=== PATIENT | female | born 1995 | race Caucasian/White ===

== ENCOUNTER → 2016-11-16 | Outpatient (CLI) | payer MEDICAID ==
--- NOTE | 2016-11-18 14:19 | US ---
EXAM DATE: 11/16/16 PATIENT'S AGE: 21 Patient: MONA MCMAHON Facility: [facility], [place], [place] : 1995 Study: US OB Pelvis [id number]/8/2017 2:14:51 PM Ordering Physician: Leona Aguilar Final Report: HISTORY: anatomy. Findings: Multiple grayscale static images from an OB ultrasound were evaluated. There is a single viable intrauterine fetus in cephalic presentation. The placenta is posterior without previa. The placenta has a small hypoechoic focus which may represent a small venous resendiz or fibrin deposition. The amniotic fluid is subjectively normal with an GEORGE of 16.6 cm. biometry demonstrates a BPD of 4.6 cm, 19 weeks 5 days. Head circumference 17.9 cm, 20 weeks 2 days. Abdominal circumference is 15.2 cm, 20 weeks 3 days. Femur length is 3.4 cm, 20 weeks 5 days. The estimated gestational age by ultrasound is 20 weeks 2 days with estimated delivery 03 April 2017. This correlates with the LMP. survey demonstrates a four-chamber heart. Right and left outflow tracts are seen. The cardiac rate 151 beats per minute. The kidneys, stomach and bladder normal. Three-vessel cord is present. The umbilical insertion site is normal. The kidneys, stomach and bladder are normal. Intracranial contents are normal. The upper lip is intact. The nasal bone is not well seen on the profile image. Impression: 1. Single viable intrauterine fetus in cephalic presentation with estimated gestational age of 20 weeks 2 days. This correlates with the LMP. 2. The nasal bone is not well seen on the frontal image. The remainder of the survey is normal. 3. Small hyperechoic focus in the posterior placenta most likely a small venous Resendiz or fibrin deposition. Dictated by Miracle Piedra MD @ Nov 17 2016 11:18PM (Electronic Signature) Report Signed by Proxy and Original Signed Document filed in the Medical Record. [facility] CENTERDonavan
== END ==
LOC: MW.US 13:10
PROVIDERS: ATTEND Advanced Practice Midwife
DX: Z34.92 Encounter for supervision of normal pregnancy, unspecified, second trimester (principal); Z3A.19 19 weeks gestation of pregnancy
CPT/HCPCS: 76805; 76805-26

== ENCOUNTER 2017-04-07 00:48 | Inpatient (IN) | payer MEDICAID ==
[2017-04-07] MEDS ORDERED: Carboprost Tromethamine 250 MCG/1 ML Amp IM PRN (01:41)
[2017-04-07] MEDS ORDERED: Misoprostol 200 MCG Tab PO PRN (01:41)
[2017-04-07] MEDS ORDERED: Terbutaline 1 MG/ML SDV SUBCUT PRN (01:41)
[2017-04-07] MEDS ORDERED: Lidocaine 1% 50 ML MDV INJECT PRN (01:41)
[2017-04-07] MEDS ORDERED: Water For Irrigation,Sterile 1,000 ML Container IRR PRN (01:41)
[2017-04-07] MEDS ORDERED: Sodium Chloride 0.9% 2.5 ML Syringe FLUSH PRN (01:41)
[2017-04-07] MEDS ORDERED: Butorphanol 1 MG/ML SDV IVPUSH PRN (01:41)
[2017-04-07] MEDS ORDERED: Sodium Chloride 0.9% 10 ML Syringe FLUSH PRN (01:41)
[2017-04-07] MEDS ORDERED: Nalbuphine 10 MG/1 ML Vial IVPUSH PRN (01:41)
[2017-04-07] MEDS ORDERED: Methylergonovine 0.2 MG/1 ML Amp IM PRN (01:41)
[2017-04-07] MEDS ORDERED: Misoprostol 25 MCG (1/4 of 100 MCG) Tab PO SCH (01:45)
[2017-04-07] MEDS ORDERED: Misoprostol 25 MCG (1/4 of 100 MCG) Tab VAG SCH (01:45)
[2017-04-07] MEDS ORDERED: Oxytocin/Lactated Ringers 30 UNIT/500 ML BAG IV SCH ×2 (01:45→06:00)
[2017-04-07] MEDS ORDERED: Misoprostol 25 MCG (1/4 of 100 MCG) Tab PO PRN (06:00)
[2017-04-07] MEDS ORDERED: Misoprostol 25 MCG (1/4 of 100 MCG) Tab VAG PRN (06:00)
[2017-04-07] MEDS: Lactated Ringers 1,000 ML IV SCH ×3 (08:43→13:27)
--- NOTE | 2017-04-07 10:00 | PCM.LDHP ---
L&D History of Present Illness - General Date of Service: 04/07/17 Admit Problem/Dx: Patient Status Order with Admit Dx/Problem 04/07/17 01:43 Patient Status [ADT] Routine Admission Diagnosis/Problem Admission Diagnosis/Problem 04/07/17 09:57 21 yo EDC 03/29/2017 41 2/7wk O+, RI, GBS neg, IOL for post dates. Source of Information: Patient History Limitations: Reports: No Limitations - History of Present Illness Improves with: Reports: None Worsens with: Reports: None Associated Symptoms: Reports: N - Related Data Allergies/Adverse Reactions: Allergies Allergy/AdvReac Type Severity Reaction Status Date / Time No Known Allergies Allergy Verified 03/30/16 08:59 Home Medications: Home Meds . 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 Musculoskeletal History: Reports: None Neurological History: Reports: None Psychiatric History: Reports: None Endocrine/Metabolic History: Reports: None Hematologic History: Reports: None Dermatologic History: Reports: None - Past Surgical History HEENT Surgical History: Reports: None Cardiovascular Surgical History: Reports: None Respiratory Surgical History: Reports: None GI Surgical History: Reports: Cholecystectomy, Hernia, Abdominal Endocrine Surgical History: Reports: None Neurological Surgical History: Reports: None Musculoskeletal Surgical History: Reports: None Dermatological Surgical History: Reports: None Social & Family History - Family History Family Medical History: Unobtainable - Tobacco Use Smoking Status *Q: Never Smoker Second Hand Smoke Exposure: No - Caffeine Use Caffeine Use: Reports: None - Recreational Drug Use Recreational Drug Use: No Drug Use in Last 12 Months: No H&P Review of Systems - Review of Systems: Review Of Systems: See Below General: Reports: No Symptoms HEENT: Reports: No Symptoms Pulmonary: Reports: No Symptoms Cardiovascular: Reports: No Symptoms Gastrointestinal: Reports: No Symptoms Genitourinary: Reports: No Symptoms Musculoskeletal: Reports: No Symptoms Skin: Reports: No Symptoms Psychiatric: Reports: No Symptoms Neurological: Reports: No Symptoms Hematologic/Lymphatic: Reports: No Symptoms Immunologic: Reports: No Symptoms L&D Exam - Exam Exam: See Below - Vital Signs Weight: 73.028 kg - Bhakta Score Bhakta Score Cervix Position: Midposition Bhakta Score Consistency: Soft Bhakta Score Effacement: >80% Bhakta Score Dilation: 3-4 cm Bhakta Score Infant's Station: -2 Bhakta Score Total: 9 - Exam General: Alert, Oriented, Cooperative HEENT: Hearing Intact Lungs: Normal Respiratory Effort GI/Abdominal Exam: Soft, Non-Tender (gravid) Rectal Exam: Deferred Genitourinary: Normal external exam, Normal bimanual exam, Cervical dilitation Back Exam: Full Range of Motion Extremities: Normal Range of Motion, Non-Tender, No Pedal Edema Skin: Warm, Dry, Intact Neurological: Cranial Nerves Intact Psychiatric: Alert, Normal Affect, Normal Mood - Patient Data Lab Results Last 24 hrs: Laboratory Results - last 24 hr 04/07/17 04/07/17 Range/Units 02:00 02:00 WBC 11.15 H (4.0-11.0) K/uL RBC 3.94 L (4.30-5.90) M/uL Hgb 12.1 (12.0-16.0) g/dL Hct 36.4 (36.0-46.0) % MCV 92.4 (80.0-98.0) fL MCH 30.7 (27.0-32.0) pg MCHC 33.2 (31.0-37.0) g/dL RDW Std Deviation 48.2 (28.0-62.0) fl RDW Coeff of Khoi 14 (11.0-15.0) % Plt Count 244 (150-400) K/uL MPV 10.30 (7.40-12.00) fL Nucleated RBC % 0.0 /100WBC Nucleated RBCs # 0 K/uL Blood Type O POSITIVE Antibody Screen NEGATIVE Result Diagrams: 04/07/17 02:00 - Problem List (1) Supervision of normal IUP (intrauterine ) in multigravida SNOMED Code(s): 192956478, 531777707, 182436652 ICD Code: Z34.80 - ENCOUNTER FOR SUPRVSN OF NORMAL , UNSP TRIMESTER Status: Acute Priority: High Current Visit: Yes Qualifiers: Trimester: third trimester Qualified Code(s): Z34.83 - Encounter for supervision of other normal , third trimester (2) Post-dates SNOMED Code(s): 63055750 ICD Code: O48.0 - POST-TERM Status: Acute Priority: High Current Visit: Yes Qualifiers: Post-term type: 40-42 weeks gestation Qualified Code(s): O48.0 - Post-term Problem List Initiated/Reviewed/Updated: Yes Orders Last 24hrs: Active Orders 24 hr Category Date Time Status Patient Status [ADT] Routine ADT 04/07/17 01:43 Active Bedrest Bathroom Privileges [RC] ASDIRECTED Care 04/07/17 01:43 Active Communication Order [RC] ASDIRECTED Care 04/07/17 01:43 Active Communication Order [RC] ASDIRECTED Care 04/07/17 01:43 Active Communication Order [RC] ASDIRECTED Care 04/07/17 01:43 Active Heart Tones [RC] CONTINUOUS Care 04/07/17 01:43 Active Non Stress Test [RC] PER UNIT ROUTINE Care 04/07/17 01:43 Active May Shower [RC] ASDIRECTED Care 04/07/17 01:43 Active Notify Provider [RC] PRN Care 04/07/17 01:43 Active Notify Provider [RC] PRN Care 04/07/17 01:43 Active Notify Provider [RC] PRN Care 04/07/17 01:43 Active Notify Provider [RC] STAT Care 04/07/17 01:43 Active Oxygen Therapy [RC] ASDIRECTED Care 04/07/17 01:43 Active Peripheral IV Care [RC] . DIRECTED Care 04/07/17 01:41 Active Up ad Betzy [RC] ASDIRECTED Care 04/07/17 01:43 Active Vaginal Exam [RC] PRN Care 04/07/17 01:43 Active Vital Signs [RC] PER UNIT ROUTINE Care 04/07/17 01:43 Active Regular Diet [DIET] Diet 04/07/17 Breakfast Active Butorphanol [Stadol] Med 04/07/17 01:41 Active 1 mg IVPUSH Q1H PRN Carboprost Tromethamine [Hemabate DS] Med 04/07/17 01:41 Active 250 mcg IM ASDIRECTED PRN Lactated Ringers [Ringers, Lactated] 1,000 ml Med 04/07/17 01:45 Active IV ASDIRECTED Lidocaine 1% [Xylocaine 1%] Med 04/07/17 01:41 Active 50 ml INJECT .ONCE PRN Methylergonovine [Methergine] Med 04/07/17 01:41 Active 0.2 mg IM ASDIRECTED PRN Misoprostol [Cytotec] Med 04/07/17 01:41 Active 200 mcg PO .ONCE PRN Misoprostol [Cytotec] Med 04/07/17 01:45 Active 25 mcg PO .ONCE Misoprostol [Cytotec] Med 04/07/17 06:00 Active 25 mcg PO Q4H PRN Misoprostol [Cytotec] Med 04/07/17 01:45 Active 25 mcg VAG .ONCE Misoprostol [Cytotec] Med 04/07/17 06:00 Active 25 mcg VAG Q4H PRN Oxytocin/Lactated Ringers [Pitocin in LR 30 Units/500 Med 04/07/17 06:00 Active ML] 30 unit in 500 ml IV TITRATE Sodium Chloride 0.9% [Saline Flush] Med 04/07/17 01:41 Active 10 ml FLUSH ASDIRECTED PRN Sodium Chloride 0.9% [Saline Flush] Med 04/07/17 01:41 Active 2.5 ml FLUSH ASDIRECTED PRN Terbutaline [Brethine] Med 04/07/17 01:41 Active 0.25 mg SUBCUT ASDIRECTED PRN Water For Irrigation,Sterile [Sterile Water for Med 04/07/17 01:41 Active Irrigation] 1,000 ml IRR ASDIRECTED PRN Scalp Electrode [WOMSER] Per Unit Routine Ot 04/07/17 01:43 Ordered Medication Administration Instruction [OM.PC] Q3H Oth 04/07/17 01:45 Ordered Peripheral IV Insertion Adult [OM.PC] Routine Oth 04/07/17 01:43 Ordered Resuscitation Status Routine Resus Stat 04/07/17 01:41 Ordered Medication Orders Butorphanol Tartrate (Stadol) 1 mg IVPUSH Q1H PRN PRN Reason: Pain Carboprost Tromethamine (Hemabate Ds) 250 mcg IM ASDIRECTED PRN PRN Reason: Post Hemorrhage Lactated Ringer's (Ringers, Lactated) 1,000 mls @ 150 mls/hr IV ASDIRECTED HORACE Last Admin: 04/07/17 08:43 Dose: 150 mls/hr Oxytocin/Lactated Ringer's (Pitocin In Lr 30 Units/500 Ml) 30 unit in 500 mls @ 2 mls/hr IV TITRATE HORACE; 2 MUNITS/MIN PRN Reason: Protocol Last Titration: 04/07/17 09:52 Dose: 4 munits/min, 4 mls/hr Admin: 04/07/17 08:53 Dose: 2 munits/min, 2 mls/hr Lidocaine HCl (Xylocaine 1%) 50 ml INJECT .ONCE PRN PRN Reason: Laceration repair Methylergonovine Maleate (Methergine) 0.2 mg IM ASDIRECTED PRN PRN Reason: Post Hemorrhage Misoprostol (Cytotec) 25 mcg VAG .ONCE HORACE Misoprostol (Cytotec) 25 mcg VAG Q4H PRN PRN Reason: Cervical Ripening Stop: 04/08/17 10:01 Misoprostol (Cytotec) 200 mcg PO .ONCE PRN PRN Reason: Post Hemorrhage Misoprostol (Cytotec) 25 mcg PO .ONCE HORACE Misoprostol (Cytotec) 25 mcg PO Q4H PRN PRN Reason: Cervical Ripening Stop: 04/08/17 10:01 Sodium Chloride (Saline Flush) 10 ml FLUSH ASDIRECTED PRN PRN Reason: Keep Vein Open Sodium Chloride (Saline Flush) 2.5 ml FLUSH ASDIRECTED PRN PRN Reason: Keep Vein Open Sterile Water (Sterile Water For Irrigation) 1,000 ml IRR ASDIRECTED PRN PRN Reason: delivery Terbutaline Sulfate (Brethine) 0.25 mg SUBCUT ASDIRECTED PRN PRN Reason: Tacysystole Assessment/Plan Comment:: IOL A: 21 yo EDC 03/29/2017 41 2/7wk O+, RI, GBS neg, IOL for post dates. P: AROM, Pitocin per protocol, IV pain meds prn, anticipate
--- NOTE | 2017-04-07 12:55 | PCM.PREANE ---
Preanesthetic Assessment - Anesthesia/Transfusion/Family Hx Anesthesia History: Prior Anesthesia Without Reaction Family History of Anesthesia Reaction: No Transfusion History: No Prior Transfusion(s) - Review of Systems General: No Symptoms Pulmonary: No Symptoms Cardiovascular: No Symptoms Gastrointestinal: No Symptoms Neurological: No Symptoms Other: Reports: None - Physical Assessment Height: 1.65 m Weight: 73.028 kg Mental Status: Alert & Oriented x3 Dentition: Reports: Normal Dentition ROM/Head Extension: Full Lungs: Clear to Auscultation, Normal Respiratory Effort Cardiovascular: Regular Rate, Regular Rhythm - Lab Values: Laboratory Last Values WBC 11.15 K/uL (4.0-11.0) H 04/07/17 02:00 RBC 3.94 M/uL (4.30-5.90) L 04/07/17 02:00 Hgb 12.1 g/dL (12.0-16.0) 04/07/17 02:00 Hct 36.4 % (36.0-46.0) 04/07/17 02:00 MCV 92.4 fL (80.0-98.0) 04/07/17 02:00 MCH 30.7 pg (27.0-32.0) 04/07/17 02:00 MCHC 33.2 g/dL (31.0-37.0) 04/07/17 02:00 RDW Std Deviation 48.2 fl (28.0-62.0) 04/07/17 02:00 RDW Coeff of Khoi 14 % (11.0-15.0) 04/07/17 02:00 Plt Count 244 K/uL (150-400) 04/07/17 02:00 MPV 10.30 fL (7.40-12.00) 04/07/17 02:00 Nucleated RBC % 0.0 /100WBC 04/07/17 02:00 Nucleated RBCs # 0 K/uL 04/07/17 02:00 Blood Type O POSITIVE 04/07/17 02:00 Antibody Screen NEGATIVE 04/07/17 02:00 - Allergies Allergies/Adverse Reactions: Allergies Allergy/AdvReac Type Severity Reaction Status Date / Time No Known Allergies Allergy Verified 03/30/16 08:59 - Blood Blood Available: Yes Product(s) Available: PRBC - Anesthesia Plan Pre-Op Medication Ordered: None - Acknowledgements Anesthesia Type Planned: Epidural Pt an Appropriate Candidate for the Planned Anesthesia: Yes Alternatives and Risks of Anesthesia Discussed w Pt/Guardian: Yes Pt/Guardian Understands and Agrees with Anesthesia Plan: Yes PreAnesthesia Questionnaire HEENT History: Reports: None Cardiovascular History: Reports: None Respiratory History: Reports: None Gastrointestinal History: Reports: None Genitourinary History: Reports: Renal Calculus 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 Musculoskeletal History: Reports: None Neurological History: Reports: None Psychiatric History: Reports: None Endocrine/Metabolic History: Reports: None Hematologic History: Reports: None Dermatologic History: Reports: None - Past Surgical History HEENT Surgical History: Reports: None Cardiovascular Surgical History: Reports: None Respiratory Surgical History: Reports: None GI Surgical History: Reports: Cholecystectomy, Hernia, Abdominal Endocrine Surgical History: Reports: None Neurological Surgical History: Reports: None Musculoskeletal Surgical History: Reports: None Dermatological Surgical History: Reports: None - SUBSTANCE USE Smoking Status *Q: Never Smoker Second Hand Smoke Exposure: No Recreational Drug Use History: No - HOME MEDS Home Medications: Home Meds . [No Known Home Meds] 03/30/16 [History] - CURRENT (IN HOUSE) MEDS Current Meds: Current Medications Butorphanol Tartrate (Stadol) 1 mg IVPUSH Q1H PRN PRN Reason: Pain Last Admin: 04/07/17 10:15 Dose: 1 mg Carboprost Tromethamine (Hemabate Ds) 250 mcg IM ASDIRECTED PRN PRN Reason: Post Hemorrhage Lactated Ringer's (Ringers, Lactated) 1,000 mls @ 150 mls/hr IV ASDIRECTED HORACE Last Admin: 04/07/17 08:43 Dose: 150 mls/hr Oxytocin/Lactated Ringer's (Pitocin In Lr 30 Units/500 Ml) 30 unit in 500 mls @ 2 mls/hr IV TITRATE HORACE; 2 MUNITS/MIN PRN Reason: Protocol Last Titration: 04/07/17 11:30 Dose: 8 munits/min, 8 mls/hr Lidocaine HCl (Xylocaine 1%) 50 ml INJECT .ONCE PRN PRN Reason: Laceration repair Methylergonovine Maleate (Methergine) 0.2 mg IM ASDIRECTED PRN PRN Reason: Post Hemorrhage Misoprostol (Cytotec) 25 mcg VAG .ONCE HORACE Misoprostol (Cytotec) 25 mcg VAG Q4H PRN PRN Reason: Cervical Ripening Stop: 04/08/17 10:01 Misoprostol (Cytotec) 200 mcg PO .ONCE PRN PRN Reason: Post Hemorrhage Misoprostol (Cytotec) 25 mcg PO .ONCE HORACE Misoprostol (Cytotec) 25 mcg PO Q4H PRN PRN Reason: Cervical Ripening Stop: 04/08/17 10:01 Sodium Chloride (Saline Flush) 10 ml FLUSH ASDIRECTED PRN PRN Reason: Keep Vein Open Sodium Chloride (Saline Flush) 2.5 ml FLUSH ASDIRECTED PRN PRN Reason: Keep Vein Open Sterile Water (Sterile Water For Irrigation) 1,000 ml IRR ASDIRECTED PRN PRN Reason: delivery Terbutaline Sulfate (Brethine) 0.25 mg SUBCUT ASDIRECTED PRN PRN Reason: Tacysystole Discontinued Medications Oxytocin/Lactated Ringer's (Pitocin In Lr 30 Units/500 Ml) 30 unit in 500 mls @ 250 mls/hr IV TITRATE HORACE PRN Reason: 250 MUNITS/MIN Stop: 04/07/17 03:44 Nalbuphine HCl (Nubain) 10 mg IVPUSH Q1H PRN PRN Reason: Pain (severe 7-10) Stop: 04/07/17 03:42
[2017-04-07] MEDS ORDERED: fentaNYL 100 MCG/2 ML SDV ONE (12:56)
[2017-04-07] MEDS ORDERED: Ropivacaine HCl/PF 100 ML ONE (12:57)
[2017-04-07] MEDS ORDERED: Docusate Sodium 100 MG Cap PO PRN (14:20)
[2017-04-07] MEDS ORDERED: Acetaminophen 500 MG Tab PO PRN (14:20)
[2017-04-07] MEDS ORDERED: Lanolin 100% Cream 7 GM Tube TOP PRN (14:20)
[2017-04-07] MEDS ORDERED: Bisacodyl 10 MG Supp RECTAL PRN (14:20)
[2017-04-07] MEDS ORDERED: Ibuprofen 400 MG Tab PO PRN (14:20)
[2017-04-07] MEDS ORDERED: Witch Hazel Medicated Pads 40/Jar TOP PRN (14:20)
[2017-04-07] MEDS ORDERED: Benzocaine/Menthol 20%-0.5% Spray 78 GM Cannister TOP PRN (14:20)
[2017-04-07] MEDS ORDERED: Ibuprofen 800 MG Tab PO PRN (14:20)
--- NOTE | 2017-04-07 14:30 | PCM.DEL ---
L & D Note - General Info Date of Service: 04/07/17 Mother's Due Date: 03/29/17 - Delivery Note Labor: Augmented by Oxytocin, Induced by ARM Delivery Outcome: Livebirth Delivery Method: Spontaneous Vaginal Delivery Delivery Mode: Spontaneous Presentation: Vertex Nuchal Cord: None Anesthesia Type: Epidural Amniotic Fluid Description: Clear Episiotomy Type: None Laceration: None Placenta: Intact, Spontaneous Cord: 3 Vessels Estimated Blood Loss: 300 Resuscitation Needed: Yes Standish: Suctioned, Stimulated, Warmed (PPV and blow by O2) Second Stage Interventions: Reports: Pushing Effectively Delivery Comments (Free Text/Narrative):: of viable girl over intact perineum. Head delivered with good pushing, bundle of umbilical cord noted at neck but not a nuchle, Shoulders and body followed easily. Infant to mothers abd with RN at . Poor cry and color, cord clamped and cut. Infant to warmer for evaluation. Placenta delivered grossly intact. Pitocin to IVF. Inspection noted intact perineum. EBL 300, APGARS 7/8. Wt pending bonding. Bonding well. Induction Criteria - Bhakta Score Bhakta Score Dilation: 3-4 cm Bhakta Score Effacement: 60-70% Bhakta Score Infant's Station: -2 Bhakta Score Consistency: Soft Bhakta Score Cervix Position: Midposition Bhakta Score Total: 8 Bhakta Score Presenting Part: Reports: Cephalic - Induction Gestational Age >/= 39 wks: Yes Medical Indication: post dates 41 2/7wks Estimated Pelvis: Reports: Adequate Reassuring Monitoring Strip: Yes Absence of Tachy Systole: Yes - General Info Date of Service: 04/07/17 Functional Status: Reports: Pain Controlled - Review of Systems General: Reports: No Symptoms HEENT: Reports: No Symptoms Pulmonary: Reports: No Symptoms Cardiovascular: Reports: No Symptoms Gastrointestinal: Reports: No Symptoms Genitourinary: Reports: No Symptoms Musculoskeletal: Reports: No Symptoms Skin: Reports: No Symptoms Neurological: Reports: No Symptoms Psychiatric: Reports: No Symptoms - Patient Data Weight - Most Recent: 73.028 kg Lab Results Last 24 Hours: Laboratory Results - last 24 hr 04/07/17 04/07/17 Range/Units 02:00 02:00 WBC 11.15 H (4.0-11.0) K/uL RBC 3.94 L (4.30-5.90) M/uL Hgb 12.1 (12.0-16.0) g/dL Hct 36.4 (36.0-46.0) % MCV 92.4 (80.0-98.0) fL MCH 30.7 (27.0-32.0) pg MCHC 33.2 (31.0-37.0) g/dL RDW Std Deviation 48.2 (28.0-62.0) fl RDW Coeff of Khoi 14 (11.0-15.0) % Plt Count 244 (150-400) K/uL MPV 10.30 (7.40-12.00) fL Nucleated RBC % 0.0 /100WBC Nucleated RBCs # 0 K/uL Blood Type O POSITIVE Antibody Screen NEGATIVE Med Orders - Current: Current Medications Discontinued Medications Butorphanol Tartrate (Stadol) 1 mg IVPUSH Q1H PRN PRN Reason: Pain Last Admin: 04/07/17 10:15 Dose: 1 mg Carboprost Tromethamine (Hemabate Ds) 250 mcg IM ASDIRECTED PRN PRN Reason: Post Hemorrhage Fentanyl (Sublimaze) Confirm Administered Dose 100 mcg .ROUTE .STK-MED ONE Stop: 04/07/17 12:57 Lactated Ringer's (Ringers, Lactated) 1,000 mls @ 150 mls/hr IV ASDIRECTED HORACE Last Admin: 04/07/17 13:27 Dose: 150 mls/hr Oxytocin/Lactated Ringer's (Pitocin In Lr 30 Units/500 Ml) 30 unit in 500 mls @ 2 mls/hr IV TITRATE HORACE; 2 MUNITS/MIN PRN Reason: Protocol Last Titration: 04/07/17 11:30 Dose: 8 munits/min, 8 mls/hr Oxytocin/Lactated Ringer's (Pitocin In Lr 30 Units/500 Ml) 30 unit in 500 mls @ 250 mls/hr IV TITRATE HORACE PRN Reason: 250 MUNITS/MIN Stop: 04/07/17 03:44 Ropivacaine (Naropin 0.2%) Confirm Administered Dose 100 mls @ as directed .ROUTE .STK-MED ONE Stop: 04/07/17 12:58 Lidocaine HCl (Xylocaine 1%) 50 ml INJECT .ONCE PRN PRN Reason: Laceration repair Methylergonovine Maleate (Methergine) 0.2 mg IM ASDIRECTED PRN PRN Reason: Post Hemorrhage Misoprostol (Cytotec) 25 mcg VAG .ONCE HORACE Misoprostol (Cytotec) 25 mcg VAG Q4H PRN PRN Reason: Cervical Ripening Stop: 04/08/17 10:01 Misoprostol (Cytotec) 200 mcg PO .ONCE PRN PRN Reason: Post Hemorrhage Misoprostol (Cytotec) 25 mcg PO .ONCE HORACE Misoprostol (Cytotec) 25 mcg PO Q4H PRN PRN Reason: Cervical Ripening Stop: 04/08/17 10:01 Nalbuphine HCl (Nubain) 10 mg IVPUSH Q1H PRN PRN Reason: Pain (severe 7-10) Stop: 04/07/17 03:42 Sodium Chloride (Saline Flush) 10 ml FLUSH ASDIRECTED PRN PRN Reason: Keep Vein Open Sodium Chloride (Saline Flush) 2.5 ml FLUSH ASDIRECTED PRN PRN Reason: Keep Vein Open Sterile Water (Sterile Water For Irrigation) 1,000 ml IRR ASDIRECTED PRN PRN Reason: delivery Terbutaline Sulfate (Brethine) 0.25 mg SUBCUT ASDIRECTED PRN PRN Reason: Tacysystole - Exam General: Alert, Oriented, Cooperative, No Acute Distress Lungs: Normal Respiratory Effort GI/Abdominal Exam: Soft, Non-Tender, No Organomegaly (Female) Exam: Vaginal Bleeding Back Exam: Full Range of Motion Extremities: Normal Range of Motion, No Pedal Edema Skin: Warm, Dry, Intact Wound/Incisions: Healing Well Neurological: No New Focal Deficit, Normal Speech, Normal Tone Psy/Mental Status: Alert, Normal Affect, Normal Mood - Problem List & Annotations (1) Supervision of normal IUP (intrauterine ) in multigravida SNOMED Code(s): 636073015, 348286952, 377122068 Code(s): Z34.80 - ENCOUNTER FOR SUPRVSN OF NORMAL , UNSP TRIMESTER Status: Acute Priority: High Current Visit: Yes Qualifiers: Trimester: third trimester Qualified Code(s): Z34.83 - Encounter for supervision of other normal , third trimester (2) Post-dates SNOMED Code(s): 13477395 Code(s): O48.0 - POST-TERM Status: Acute Priority: High Current Visit: Yes Qualifiers: Post-term type: 40-42 weeks gestation Qualified Code(s): O48.0 - Post-term (3) (normal spontaneous vaginal delivery) SNOMED Code(s): 58194989 Code(s): O80 - ENCOUNTER FOR FULL-TERM UNCOMPLICATED DELIVERY Status: Acute Priority: Medium Current Visit: Yes - Problem List Review Problem List Initiated/Reviewed/Updated: Yes - My Orders Last 24 Hours: My Active Orders 04/07/17 01:43 Bedrest Bathroom Privileges [RC] ASDIRECTED Communication Order [RC] ASDIRECTED Communication Order [RC] ASDIRECTED Communication Order [RC] ASDIRECTED Heart Tones [RC] CONTINUOUS Non Stress Test [RC] PER UNIT ROUTINE May Shower [RC] ASDIRECTED Notify Provider [RC] PRN Notify Provider [RC] PRN Notify Provider [RC] PRN Notify Provider [RC] STAT Oxygen Therapy [RC] ASDIRECTED Up ad Betzy [RC] ASDIRECTED Vaginal Exam [RC] PRN Vital Signs [RC] PER UNIT ROUTINE 04/07/17 14:20 May Shower [RC] ASDIRECTED Up ad Betzy [RC] ASDIRECTED Vital Signs [RC] PER UNIT ROUTINE Acetaminophen [Tylenol Extra Strength] 1,000 mg PO Q4H PRN Acetaminophen [Tylenol Extra Strength] 500 mg PO Q4H PRN Benzocaine/Menthol [Dermoplast Pain Relief 20%-0.5% [place]] 78 gm TOP ASDIRECTED PRN Bisacodyl [Dulcolax] 10 mg RECTAL .ONCE PRN Docusate Sodium [Colace] 100 mg PO BID PRN Ibuprofen [Motrin] 400 mg PO Q4H PRN Ibuprofen [Motrin] 800 mg PO Q6H PRN Lanolin [Lansinoh HPA] See Dose Instructions TOP ASDIRECTED PRN Witch Nathalia [Tucks] 1 pad TOP ASDIRECTED PRN oxyCODONE 5 mg PO Q2H PRN Assess Lochia [WOMSER] Per Unit Routine Assess Uterine Involution [WOMSER] Per Unit Routine Peripheral IV Discontinue [OM.PC] Routine Resuscitation Status Routine 04/07/17 14:21 Patient Status [ADT] Routine 04/07/17 Dinner Regular Diet [DIET] - Assessment Assessment:: of viable female, APGARS 7/8, Wt: pending. Intact perineum, EBL 300cc, Stable. Breast and bottle - Plan Plan:: IOL A: 21 yo EDC 03/29/2017 41 2/7wk O+, RI, GBS neg, IOL for post dates. P: AROM, Pitocin per protocol, IV pain meds prn, anticipate Delivery Routine pp plan of care.
[2017-04-07] MEDS ORDERED: Oxytocin/Lactated Ringers 30 UNIT/500 ML BAG ONE (16:47)
[2017-04-08] MEDS: Acetaminophen 500 MG Tab PO PRN ×2 (02:24→07:47)
[2017-04-08] MEDS: oxyCODONE 5 MG Tab PO PRN ×2 (02:24→07:48)
[2017-04-08 08:18] VITALS: BP 118/71
--- NOTE | 2017-04-08 09:52 | PCM48HPAN ---
Post Anesthesia Note - EVALUATION WITHIN 48HRS OF ANESTHETIC Vital Signs in Normal Range: Yes Patient Participated in Evaluation: Yes Respiratory Function Stable: Yes Airway Patent: Yes Cardiovascular Function Stable: Yes Hydration Status Stable: Yes Pain Control Satisfactory: Yes Nausea and Vomiting Control Satisfactory: Yes Mental Status Recovered: Yes
--- NOTE | 2017-04-08 17:57 | PCM.PNPP ---
- General Info Date of Service: 04/08/17 Functional Status: Reports: Pain Controlled - Review of Systems General: Reports: No Symptoms HEENT: Reports: No Symptoms Pulmonary: Reports: No Symptoms Cardiovascular: Reports: No Symptoms Gastrointestinal: Reports: No Symptoms Genitourinary: Reports: No Symptoms Musculoskeletal: Reports: No Symptoms Skin: Reports: No Symptoms Neurological: Reports: No Symptoms Psychiatric: Reports: No Symptoms - General Info Date of Service: 04/08/17 - Patient Data Vital Signs - Most Recent: Last Vital Signs Temp 36.6 C 04/08/17 08:00 Pulse 60 04/08/17 08:00 Resp 16 04/08/17 08:00 BP 118/71 04/08/17 08:00 Pulse Ox 100 04/08/17 08:00 Weight - Most Recent: 73.028 kg Lab Results - Last 24 Hours: Laboratory Results - last 24 hr 04/08/17 Range/Units 04:54 Hgb 9.3 L (12.0-16.0) g/dL Hct 28.3 L (36.0-46.0) % Med Orders - Current: Current Medications Acetaminophen (Tylenol Extra Strength) 500 mg PO Q4H PRN PRN Reason: Pain Last Admin: 04/08/17 07:47 Dose: 500 mg Acetaminophen (Tylenol Extra Strength) 1,000 mg PO Q4H PRN PRN Reason: Pain Last Admin: 04/08/17 16:44 Dose: 1,000 mg Benzocaine/Menthol (Dermoplast Pain Relief 20%-0.5% [place]) 78 gm TOP ASDIRECTED PRN PRN Reason: Perineal Comfort Measure Bisacodyl (Dulcolax) 10 mg RECTAL .ONCE PRN PRN Reason: Constipation Docusate Sodium (Colace) 100 mg PO BID PRN PRN Reason: Constipation Last Admin: 04/08/17 08:00 Dose: 100 mg Emollient Ointment (Lansinoh Hpa) 0 gm TOP ASDIRECTED PRN PRN Reason: Sore Nipples Ibuprofen (Motrin) 400 mg PO Q4H PRN PRN Reason: Pain Ibuprofen (Motrin) 800 mg PO Q6H PRN PRN Reason: Pain Last Admin: 04/07/17 20:57 Dose: 800 mg Oxycodone HCl (Oxycodone) 5 mg PO Q2H PRN PRN Reason: Pain Last Admin: 04/08/17 07:48 Dose: 5 mg Witch Nathalia (Tucks) 1 pad TOP ASDIRECTED PRN PRN Reason: comfort care Discontinued Medications Butorphanol Tartrate (Stadol) 1 mg IVPUSH Q1H PRN PRN Reason: Pain Last Admin: 04/07/17 10:15 Dose: 1 mg Carboprost Tromethamine (Hemabate Ds) 250 mcg IM ASDIRECTED PRN PRN Reason: Post Hemorrhage Fentanyl (Sublimaze) Confirm Administered Dose 100 mcg .ROUTE .STK-MED ONE Stop: 04/07/17 12:57 Last Admin: 04/07/17 20:04 Dose: Not Given Lactated Ringer's (Ringers, Lactated) 1,000 mls @ 150 mls/hr IV ASDIRECTED HORACE Last Admin: 04/07/17 13:27 Dose: 150 mls/hr Oxytocin/Lactated Ringer's (Pitocin In Lr 30 Units/500 Ml) 30 unit in 500 mls @ 2 mls/hr IV TITRATE HORACE; 2 MUNITS/MIN PRN Reason: Protocol Last Titration: 04/07/17 11:30 Dose: 8 munits/min, 8 mls/hr Oxytocin/Lactated Ringer's (Pitocin In Lr 30 Units/500 Ml) 30 unit in 500 mls @ 250 mls/hr IV TITRATE HORACE PRN Reason: 250 MUNITS/MIN Stop: 04/07/17 03:44 Last Admin: 04/07/17 16:54 Dose: 250 munits/min, 999 mls/hr Ropivacaine (Naropin 0.2%) Confirm Administered Dose 100 mls @ as directed .ROUTE .Social IQ (Social Influence Quotient)-MED ONE Stop: 04/07/17 12:58 Last Admin: 04/07/17 20:05 Dose: Not Given Oxytocin/Lactated Ringer's (Pitocin In Lr 30 Units/500 Ml) Confirm Administered Dose 30 unit in 500 mls @ as directed .[facility]TE [facility] Stop: 04/07/17 16:48 Last Admin: 04/07/17 16:55 Dose: Not Given Lidocaine HCl (Xylocaine 1%) 50 ml INJECT .ONCE PRN PRN Reason: Laceration repair Methylergonovine Maleate (Methergine) 0.2 mg IM ASDIRECTED PRN PRN Reason: Post Hemorrhage Misoprostol (Cytotec) 25 mcg VAG .ONCE HORACE Misoprostol (Cytotec) 25 mcg VAG Q4H PRN PRN Reason: Cervical Ripening Stop: 04/08/17 10:01 Misoprostol (Cytotec) 200 mcg PO .ONCE PRN PRN Reason: Post Hemorrhage Misoprostol (Cytotec) 25 mcg PO .ONCE HORACE Misoprostol (Cytotec) 25 mcg PO Q4H PRN PRN Reason: Cervical Ripening Stop: 04/08/17 10:01 Nalbuphine HCl (Nubain) 10 mg IVPUSH Q1H PRN PRN Reason: Pain (severe 7-10) Stop: 04/07/17 03:42 Sodium Chloride (Saline Flush) 10 ml FLUSH ASDIRECTED PRN PRN Reason: Keep Vein Open Sodium Chloride (Saline Flush) 2.5 ml FLUSH ASDIRECTED PRN PRN Reason: Keep Vein Open Sterile Water (Sterile Water For Irrigation) 1,000 ml IRR ASDIRECTED PRN PRN Reason: delivery Terbutaline Sulfate (Brethine) 0.25 mg SUBCUT ASDIRECTED PRN PRN Reason: Tacysystole - Interaction Infant Disposition, : in Room with Family Infant Interaction: Holding Feeding: Attempted ; Nursed Fair/Poor Support Person: - Recovery Exam Fundal Tone: Firm Fundal Level: 1 Fingerbreadths Below Umbilicus Fundal Placement: Midline Lochia Amount: Moderate Lochia Color: Rubra/Red Perineum Description: Intact, Minimal Bruising/Swelling Bladder Status: Voiding - Exam General: Alert, Oriented HEENT: Pupils Equal Neck: Supple Lungs: Clear to Auscultation, Normal Respiratory Effort Cardiovascular: Regular Rate, Regular Rhythm GI/Abdominal Exam: Normal Bowel Sounds, Soft, Non-Tender, No Organomegaly, No Distention, No Abnormal Bruit, No Mass, Pelvis Stable Extremities: Normal Inspection, Normal Range of Motion, Non-Tender, No Pedal Edema, Normal Capillary Refill Skin: Warm, Dry, Intact Wound/Incisions: Healing Well Neurological: No New Focal Deficit Psy/Mental Status: Alert, Normal Affect, Normal Mood - Problem List Review Problem List Initiated/Reviewed/Updated: Yes - Assessment Assessment:: of viable female, APGARS 7/8, Wt: pending. Intact perineum, EBL 300cc, Stable. Breast and bottle - Plan Plan:: IOL A: 21 yo EDC 03/29/2017 41 2/7wk O+, RI, GBS neg, IOL for post dates. P: AROM, Pitocin per protocol, IV pain meds prn, anticipate Delivery Routine pp plan of care.
== END 2017-04-08 18:51 | disposition home or self-care (01) | DRG 775 ==
LOC: MW.OBCHECK 00:48 → MW.OB 00:52 → OBSVTOIN 14:04 → MW.OBCHECK 14:36
PROVIDERS: ADMIT Obstetrics & Gynecology; ATTEND Obstetrics & Gynecology
PROC: 10E0XZZ Delivery of Products of Conception, External Approach (ICD-10-PCS; principal; 2017-04-07)
PROC: 3E033VJ Introduction of Other Hormone into Peripheral Vein, Percutaneous Approach (ICD-10-PCS; 2017-04-07)
PROC: 10907ZC Drainage of Amniotic Fluid, Therapeutic from Products of Conception, Via Natural or Artificial Opening (ICD-10-PCS; 2017-04-07)
DX: O48.0 Post-term pregnancy (principal); Z3A.41 41 weeks gestation of pregnancy; Z37.0 Single live birth
CPT/HCPCS: 01967; 36415; 59025; 85014; 85018; 85027; 86850; 86900; 86901; A9270-GY; J0595; J2795; J3010; J7120

== ENCOUNTER 2020-03-12 20:38 | Inpatient (IN) | payer MEDICAID, OTHER ==
--- NOTE | 2020-03-12 21:54 | PCM.LDHP ---
L&D History of Present Illness - General Date of Service: 03/12/20 Admit Problem/Dx: Patient Status Order with Admit Dx/Problem 03/12/20 20:20 Patient Status [ADT] Routine Admission Diagnosis/Problem Admission Diagnosis/Problem 03/12/20 21:49 24yo EDC 03/14/2020 39 5/7wks IOL for term and prolonged early labor, O+, RI, GBS neg. Source of Information: Patient History Limitations: Reports: No Limitations - History of Present Illness Improves with: Reports: None Worsens with: Reports: None Associated Symptoms: Reports: N - Related Data Allergies/Adverse Reactions: Allergies Allergy/AdvReac Type Severity Reaction Status Date / Time No Known Allergies Allergy Verified 03/12/20 20:53 Home Medications: Home Meds . 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 Musculoskeletal History: Reports: None Neurological History: Reports: None Psychiatric History: Reports: None Endocrine/Metabolic History: Reports: None Hematologic History: Reports: None Dermatologic History: Reports: None - Past Surgical History HEENT Surgical History: Reports: None Cardiovascular Surgical History: Reports: None Respiratory Surgical History: Reports: None GI Surgical History: Reports: Cholecystectomy, Hernia, Abdominal Endocrine Surgical History: Reports: None Neurological Surgical History: Reports: None Musculoskeletal Surgical History: Reports: None Dermatological Surgical History: Reports: None Social & Family History - Family History Family Medical History: Unobtainable - Caffeine Use Caffeine Use: Reports: None H&P Review of Systems - Review of Systems: Review Of Systems: See Below General: Reports: No Symptoms HEENT: Reports: No Symptoms Pulmonary: Reports: No Symptoms Cardiovascular: Reports: No Symptoms Gastrointestinal: Reports: No Symptoms Genitourinary: Reports: No Symptoms Musculoskeletal: Reports: No Symptoms Skin: Reports: No Symptoms Psychiatric: Reports: No Symptoms Neurological: Reports: No Symptoms Hematologic/Lymphatic: Reports: No Symptoms Immunologic: Reports: No Symptoms L&D Exam - Exam Exam: See Below - Vital Signs Weight: 81.647 kg - OB Specific Contraction Intensity: Mild Movement: Active Heart Tones: Present Heart Tones per Min: 155 Heart Rate (FHR) Variability: Moderate (6-25 bmp) Presentation: Vertex - Bhakta Score Bhakta Score Cervix Position: Midposition Bhakta Score Consistency: Soft Bhakta Score Effacement: 51-70% Bhakta Score Dilation: 1-2 cm Bhakta Score 's Station: -3 Bhakta Score Total: 6 - Exam General: Alert, Oriented, Cooperative HEENT: Hearing Intact Lungs: Clear to Auscultation, Normal Respiratory Effort Cardiovascular: Regular Rate, Regular Rhythm, Normal S1, Normal S2 GI/Abdominal Exam: Soft, Non-Tender Rectal Exam: Deferred Genitourinary: Normal external exam, Normal bimanual exam, Cervical dilitation. No: Cervical fluid, Vaginal bleeding Back Exam: Normal Inspection, Full Range of Motion Extremities: Normal Inspection, Normal Range of Motion, Non-Tender, No Pedal Edema Skin: Warm, Dry, Intact Neurological: Cranial Nerves Intact, Strength Equal Bilateral, Normal Speech, Normal Tone, Sensation Intact Psychiatric: Alert, Normal Affect, Normal Mood - Problem List (1) Supervision of normal IUP (intrauterine ) in multigravida SNOMED Code(s): 543987219, 042342508, 206238071 ICD Code: Z34.80 - ENCOUNTER FOR SUPRVSN OF NORMAL , UNSP TRIMESTER Status: Acute Priority: High Current Visit: No Qualifiers: Trimester: third trimester Qualified Code(s): Z34.83 - Encounter for supervision of other normal , third trimester Problem List Initiated/Reviewed/Updated: Yes Orders Last 24hrs: Active Orders 24 hr Category Date Time Status Patient Status [ADT] Routine ADT 03/12/20 20:20 Active Non Stress Test [RC] PER UNIT ROUTINE Care 03/12/20 20:54 Active Up ad Betzy [RC] ASDIRECTED Care 03/12/20 20:54 Active Vaginal Exam [RC] Click to Edit Care 03/12/20 20:54 Active Vital Signs [RC] PER UNIT ROUTINE Care 03/12/20 20:54 Active Resuscitation Status Routine Resus Stat 03/12/20 20:54 Ordered Assessment/Plan Comment:: IOL A: 24yo EDC 03/14/2020 39 5/7wks IOL for term and prolonged early labor, O+, RI, GBS neg. P: Admit, cytotec to pitocin, Epidural or IV pain meds prn, anticipate . DR Alfredo updated
[2020-03-12] MEDS ORDERED: Tranexamic Acid 1,000 MG in Sodium Chloride 0.9% 100 ML IV PRN (22:03)
[2020-03-12] MEDS ORDERED: Lidocaine 1% 50 ML MDV INJECT PRN (22:03)
[2020-03-12] MEDS ORDERED: Sodium Chloride 0.9% 2.5 ML Syringe FLUSH PRN (22:03)
[2020-03-12] MEDS ORDERED: Sodium Chloride 0.9% 10 ML Syringe FLUSH PRN (22:03)
[2020-03-12] MEDS ORDERED: Sodium Chloride 0.9% 10 ML SDV IV PRN (22:03)
[2020-03-12] MEDS ORDERED: Carboprost Tromethamine 250 MCG/1 ML Amp IM PRN (22:03)
[2020-03-12] MEDS ORDERED: Misoprostol 200 MCG Tab PO PRN (22:03)
[2020-03-12] MEDS ORDERED: Ondansetron 4 MG/2 ML SDV IVPUSH PRN (22:03)
[2020-03-12] MEDS ORDERED: Water For Irrigation,Sterile 1,000 ML Container IRR PRN (22:03)
[2020-03-12] MEDS ORDERED: Butorphanol 1 MG/ML SDV IVPUSH PRN (22:03)
[2020-03-12] MEDS ORDERED: Methylergonovine 0.2 MG/1 ML Amp IM PRN (22:03)
[2020-03-12] MEDS ORDERED: Nalbuphine 10 MG/1 ML Vial IVPUSH PRN (22:03)
[2020-03-12] MEDS ORDERED: Misoprostol 25 MCG (1/4 of 100 MCG) Tab VAG PRN (22:07)
[2020-03-12] MEDS ORDERED: Terbutaline 1 MG/ML SDV SUBCUT PRN (22:07)
[2020-03-12] MEDS ORDERED: Oxytocin/0.9 % Sodium Chloride 30 UNIT/500 ML BAG IV SCH ×2 (22:15)
[2020-03-12] MEDS: Misoprostol 25 MCG (1/4 of 100 MCG) Tab VAG PRN (23:08)
[2020-03-12] MEDS: Misoprostol 25 MCG (1/4 of 100 MCG) Tab PO SCH (23:08)
[2020-03-12] MEDS: Lactated Ringers 1,000 ML IV SCH (23:59)
[2020-03-13] MEDS ORDERED: Oxytocin/0.9 % Sodium Chloride 30 UNIT/500 ML BAG ONE (01:49)
[2020-03-13] MEDS: Misoprostol 25 MCG (1/4 of 100 MCG) Tab VAG PRN ×2 (03:14→07:23)
[2020-03-13] MEDS: Misoprostol 25 MCG (1/4 of 100 MCG) Tab PO SCH ×2 (03:14→07:23)
[2020-03-13] MEDS ORDERED: Ibuprofen 400 MG Tab PO PRN (11:39)
[2020-03-13] MEDS ORDERED: Witch Hazel Medicated Pads 40/Jar TOP PRN (11:39)
[2020-03-13] MEDS ORDERED: oxyCODONE 5 MG Tab PO PRN (11:39)
[2020-03-13] MEDS ORDERED: Lanolin 100% Cream 7 GM Tube TOP PRN (11:39)
[2020-03-13] MEDS ORDERED: Benzocaine/Menthol 20%-0.5% Spray 78 GM Cannister TOP PRN (11:39)
[2020-03-13] MEDS ORDERED: Bisacodyl 10 MG Supp RECTAL PRN (11:39)
[2020-03-13] MEDS ORDERED: Ibuprofen 800 MG Tab PO PRN (11:39)
[2020-03-13] MEDS ORDERED: Docusate Sodium 100 MG Cap PO PRN (11:39)
[2020-03-13] MEDS ORDERED: Acetaminophen 500 MG Tab PO PRN ×2 (11:39)
--- NOTE | 2020-03-13 11:48 | PCM.DEL ---
L & D Note - General Info Date of Service: 03/13/20 - Delivery Note Labor: Augmented by ARM Cervical Ripening Method: Misoprostil Delivery Outcome: Livebirth Infant Delivery Method: Spontaneous Vaginal Delivery-Single Infant Delivery Mode: Spontaneous Presentation: Left Occiput Anterior (DEBBIE) Nuchal Cord: Present (Nuchal x 1, somersaulted through) Anesthesia Type: None Amniotic Fluid Description: Clear Episiotomy Type: None Laceration: None Placenta: Intact, Spontaneous Cord: 3 Vessels Estimated Blood Loss: 150 Resuscitation Needed: No [place]: Stimulated, Warmed, [place] Used Score 1 min: 8 Score 5 min: 9 Second Stage Interventions: Reports: Pushing Effectively, Pushing, Feet in Foot Rests Delivery Comments (Free Text/Narrative):: Nevaeh is a 24 yo S/P uncomplicated of term, viable NBF at 39.6 weeks gestation (CHELLE 03/14/2020). NBF placed to maternal abdomen/chest, warmed, dried, stimulated with spontaneous cries. Umbilical cord left intact until cord pulse cessation (~6 min), clamped x 2, cut by FOB. Placenta delivered spontaneously 7 min S/P , Schaffer, 3VC, intact. Perineum intact. Uterus firm @ U, scant to small rubra lochia. EBL 150 ml. Mother and resting comfortably [id number] in bed. Induction Criteria - Bhakta Score Bhakta Score Dilation: 1-2 cm Bhakta Score Effacement: 60-70% Bhakta Score 's Station: -3 Bhakta Score Consistency: Soft Bhakta Score Cervix Position: Midposition Bhakta Score Total: 6 Bhakta Score Presenting Part: Reports: Cephalic - Induction Gestational Age >/= 39 wks: Yes Estimated Pelvis: Reports: Adequate Reassuring Monitoring Strip: Yes Absence of Tachy Systole: Yes - General Info Date of Service: 03/13/20 Admission Dx/Problem (Free Text): Patient Status Order with Admit Dx/Problem 03/12/20 20:20 Patient Status [ADT] Routine Admission Diagnosis/Problem Admission Diagnosis/Problem 03/12/20 21:49 24yo EDC 03/14/2020 39 5/7wks IOL for term and prolonged early labor, O+, RI, GBS neg. Functional Status: Reports: Pain Controlled (IV nubain 10 mg at 0904) - Review of Systems General: Reports: No Symptoms HEENT: Reports: No Symptoms Pulmonary: Reports: No Symptoms Cardiovascular: Reports: No Symptoms Gastrointestinal: Reports: Abdominal Pain (Intermittent uterine contractions) Genitourinary: Reports: No Symptoms Musculoskeletal: Reports: No Symptoms Skin: Reports: No Symptoms Neurological: Reports: No Symptoms Psychiatric: Reports: No Symptoms - Patient Data Vitals - Most Recent: BP 124/74(88) HR 97, T 98.4 F. Hemodynamically stable, afebrile Weight - Most Recent: 180 lb Lab Results Last 24 Hours: Laboratory Results - last 24 hr 03/12/20 03/12/20 03/12/20 Range/Units 22:40 22:40 22:45 WBC 11.08 H (4.0-11.0) K/uL RBC 3.93 L (4.30-5.90) M/uL Hgb 11.6 L (12.0-16.0) g/dL Hct 35.3 L (36.0-46.0) % MCV 89.8 (80.0-98.0) fL MCH 29.5 (27.0-32.0) pg MCHC 32.9 (31.0-37.0) g/dL RDW Std Deviation 47.3 (28.0-62.0) fl RDW Coeff of Khoi 14 (11.0-15.0) % Plt Count 320 (150-400) K/uL MPV 10.60 (7.40-12.00) fL Nucleated RBC % 0.0 /100WBC Nucleated RBCs # 0 K/uL SARS-CoV-2 RNA (RT-PCR) NEGATIVE (NEGATIVE) Blood Type O POSITIVE Antibody Screen NEGATIVE Med Orders - Current: Current Medications Discontinued Medications Butorphanol Tartrate (Stadol) 1 mg IVPUSH Q1H PRN PRN Reason: Pain Carboprost Tromethamine (Hemabate Ds) 250 mcg IM ASDIRECTED PRN PRN Reason: Post Hemorrhage Lactated Ringer's (Ringers, Lactated) 1,000 mls @ 150 mls/hr IV ASDIRECTED HORACE Last Admin: 03/12/20 23:59 Dose: 500 mls/hr Documented by: Oxytocin/Sodium Chloride (Oxytocin 30 Unit/500 Ml-Ns) 30 unit in 500 mls @ 500 mls/hr IV TITRATE HORACE Last Admin: 03/13/20 11:18 Dose: 500 mls/hr Documented by: Tranexamic Acid 1,000 mg/ (Sodium Chloride) 110 mls @ 660 mls/hr IV ONETIME PRN PRN Reason: Bleeding Oxytocin/Sodium Chloride (Oxytocin 30 Unit/500 Ml-Ns) 30 unit in 500 mls @ 2 mls/hr IV TITRATE HORACE; Protocol Oxytocin/Sodium Chloride (Oxytocin 30 Unit/500 Ml-Ns) Confirm Administered Dose 30 unit in 500 mls @ as directed .ROUTE .[facility]-MED ONE Stop: 03/13/20 01:50 Lidocaine HCl (Xylocaine 1%) 50 ml INJECT ONETIME PRN PRN Reason: Laceration repair Methylergonovine Maleate (Methergine) 0.2 mg IM ASDIRECTED PRN PRN Reason: Post Hemorrhage Misoprostol (Cytotec) 200 mcg PO ONETIME PRN PRN Reason: Post Hemorrhage Misoprostol (Cytotec) 25 mcg VAG ONETIME PRN PRN Reason: Cervical Ripening Misoprostol (Cytotec) 25 mcg VAG Q4H PRN PRN Reason: Cervical Ripening Last Admin: 03/13/20 07:23 Dose: 25 mcg Documented by: Misoprostol (Cytotec) 25 mcg PO Q4H [facility] Last Admin: 03/13/20 07:23 Dose: 25 mcg Documented by: Nalbuphine HCl (Nubain) 10 mg IVPUSH Q1H PRN PRN Reason: Pain (severe 7-10) Last Admin: 03/13/20 09:04 Dose: 10 mg Documented by: Ondansetron HCl (Zofran) 4 mg IVPUSH Q4H PRN PRN Reason: Nausea/Vomiting Sodium Chloride (Saline Flush) 10 ml FLUSH ASDIRECTED PRN PRN Reason: Keep Vein Open Sodium Chloride (Saline Flush) 2.5 ml FLUSH ASDIRECTED PRN PRN Reason: Keep Vein Open Sodium Chloride (Normal Saline) 10 ml IV ASDIRECTED PRN PRN Reason: IV Use Sterile Water (Sterile Water For Irrigation) 1,000 ml IRR ASDIRECTED PRN PRN Reason: delivery Terbutaline Sulfate (Brethine) 0.25 mg SUBCUT ASDIRECTED PRN PRN Reason: Tacysystole - Exam General: Alert, Oriented, Cooperative, No Acute Distress HEENT: Pupils Equal, Pupils Reactive Neck: Supple Lungs: Clear to Auscultation, Normal Respiratory Effort Cardiovascular: Regular Rate, Regular Rhythm GI/Abdominal Exam: Normal Bowel Sounds, Soft, Non-Tender, No Distention (Female) Exam: Normal External Exam, Enlarged Uterus ( uterus, firm @ U), Vaginal Bleeding (Scant to small rubra lochia) Back Exam: Normal Inspection, Full Range of Motion Extremities: Normal Inspection, Normal Range of Motion, Non-Tender, No Pedal Edema, Normal Capillary Refill Skin: Warm, Dry, Intact Neurological: No New Focal Deficit, Normal Tone, Strength Equal Bilateral Psy/Mental Status: Alert, Normal Affect, Normal Mood - Problem List & Annotations (1) (normal spontaneous vaginal delivery) SNOMED Code(s): 55590142, 470849501 Code(s): O80 - ENCOUNTER FOR FULL-TERM UNCOMPLICATED DELIVERY Status: Acute Priority: High Current Visit: Yes (2) Lactating mother SNOMED Code(s): 969712065, 981429445 Code(s): Z39.1 - ENCOUNTER FOR CARE AND EXAMINATION OF LACTATING MOTHER Status: Acute Priority: High Current Visit: Yes - Problem List Review Problem List Initiated/Reviewed/Updated: Yes - My Orders Last 24 Hours: My Active Orders 03/13/20 11:39 Patient Status [ADT] Routine May Shower [RC] ASDIRECTED Up ad Betzy [RC] ASDIRECTED Vital Signs [RC] PER UNIT ROUTINE Acetaminophen [Tylenol Extra Strength] 1,000 mg PO Q4H PRN Acetaminophen [Tylenol Extra Strength] 500 mg PO Q4H PRN Benzocaine/Menthol [Dermoplast Pain Relief 20%-0.5% [place]] 78 gm TOP ASDIRECTED PRN Docusate Sodium [Colace] 100 mg PO BID PRN Ibuprofen [Motrin] 400 mg PO Q4H PRN Ibuprofen [Motrin] 800 mg PO Q6H PRN Lanolin [Lansinoh HPA] See Dose Instructions TOP ASDIRECTED PRN bisacodyL [Dulcolax] 10 mg RECTAL ONETIME PRN oxyCODONE 5 mg PO Q2H PRN witch Leslye [Tucks] 1 pad TOP ASDIRECTED PRN Assess Lochia [WOMSER] Per Unit Routine Assess Uterine Involution [WOMSER] Per Unit Routine Peripheral IV Discontinue [OM.PC] Routine Resuscitation Status Routine 03/13/20 11:40 Cooling Warming Measures [RC] ASDIRECTED Ice Therapy [OM.PC] Per Unit Routine Perineal Care [OM.PC] Per Unit Routine Sitz Bath [OM.PC] Per Unit Routine - Plan Plan:: S/P uncomplicated of term, viable NBF. Continue to normal route. See new orders. Dr. Alfredo notified and agreeable to POC.
[2020-03-14 06:41] VITALS: BP 110/72; PULSE 86
--- NOTE | 2020-03-14 09:37 | PCM.DCSUM1 ---
Discharge Summary - Hospital Course Free Text/Narrative:: Nevaeh is a 24 yo PPD 1 S/P uncomplicated of term, viable NBF at 39.6 weeks gestation (CHELLE 03/14/2020). O pos, RI, GBS neg. Hemodynamically stable, afebrile. BP 135/81, HR 94, T 97.1F. Patient C/O intermittent moderate uterine cramping with breast feeding, pain well controlled with ibuprofen and tylenol. 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 Patient independently ambulating, voiding, eating, and hydrating well and without problems. Verbalizes desire to be discharged home with today. Diagnosis: Stroke: No - Discharge Data Discharge Date: 03/14/20 Discharge Disposition: Home, Self-Care 01 Condition: Good - Referral to Home Health Primary Care Physician: [facility] - Discharge Diagnosis/Problem(s) (1) (normal spontaneous vaginal delivery) SNOMED Code(s): 45490440, [id number] ICD Code: O80 - ENCOUNTER FOR FULL-TERM UNCOMPLICATED DELIVERY Status: Acute Priority: High Current Visit: Yes (2) Lactating mother SNOMED Code(s): 319664366, [id number] ICD Code: Z39.1 - ENCOUNTER FOR CARE AND EXAMINATION OF LACTATING MOTHER Status: Acute Priority: High Current Visit: Yes - Patient Instructions Diet: Usual Diet as Tolerated, Regular Diet as Tolerated, Drink 8-10+ Glasses/Day Activity: Apply Ice, No Strenuous Activities Driving: May Drive Today Showering/Bathing: May Shower Showering/Bathing, Other: May utilize sitz baths for perineal comfort Notify Provider of: Fever, Increased Pain, Swelling and Redness, Drainage, Nausea and/or Vomiting - Discharge Plan *PRESCRIPTION DRUG MONITORING PROGRAM REVIEWED*: No *COPY OF PRESCRIPTION DRUG MONITORING REPORT IN PATIENT [place]: No Prescriptions/Med Rec: Ibuprofen [Motrin] 800 mg PO Q8H PRN #90 tablet PRN Reason: Pain Home Medications: Home Meds Ibuprofen [Motrin] 800 mg PO Q8H PRN #90 tablet 03/14/20 [Rx] Oxygen Therapy Mode: Room Air - Discharge Summary/Plan Comment DC Time >30 min.: Yes Discharge Summary/Plan Comment: Discharge home today. Dr. Alfredo notified and agreeable to POC. F/U in women's clinic in 6 weeks for visit. - General Info Date of Service: 03/14/20 Admission Dx/Problem (Free Text: Patient Status Order with Admit Dx/Problem 03/12/20 20:20 Patient Status [ADT] Routine Admission Diagnosis/Problem Admission Diagnosis/Problem 03/12/20 21:49 24yo EDC 03/14/2020 39 5/7wks IOL for term and prolonged early labor, O+, RI, GBS neg. Functional Status: Reports: Pain Controlled - Review of Systems General: Reports: No Symptoms HEENT: Reports: No Symptoms Pulmonary: Reports: No Symptoms Cardiovascular: Reports: No Symptoms Gastrointestinal: Reports: No Symptoms Genitourinary: Reports: Pain (Intermittent uterine cramping, controlled), Other (Moderate to heavy vaginal bleeding, no clots) Musculoskeletal: Reports: No Symptoms Skin: Reports: No Symptoms Neurological: Reports: No Symptoms Psychiatric: Reports: No Symptoms - Patient Data Vitals - Most Recent: Last Vital Signs Temp 97.2 F 03/14/20 06:05 Pulse 86 03/14/20 06:05 Resp 18 03/13/20 20:30 BP 110/72 03/14/20 06:05 Pulse Ox 95 03/13/20 20:30 Weight - Most Recent: 180 lb Med Orders - Current: Current Medications Acetaminophen (Tylenol Extra Strength) 500 mg PO Q4H PRN PRN Reason: Pain Acetaminophen (Tylenol Extra Strength) 1,000 mg PO Q4H PRN PRN Reason: Pain Last Admin: 03/13/20 20:01 Dose: 1,000 mg Documented by: Benzocaine/Menthol (Dermoplast Pain Relief 20%-0.5% Carter) 78 gm TOP ASDIRECTED PRN PRN Reason: Perineal Comfort Measure Bisacodyl (Dulcolax) 10 mg RECTAL ONETIME PRN PRN Reason: Constipation Docusate Sodium (Colace) 100 mg PO BID PRN PRN Reason: Constipation Emollient Ointment (Lansinoh Hpa) 0 gm TOP ASDIRECTED PRN PRN Reason: Sore Nipples Ibuprofen (Motrin) 400 mg PO Q4H PRN PRN Reason: Pain Ibuprofen (Motrin) 800 mg PO Q6H PRN PRN Reason: Pain Last Admin: 03/13/20 16:46 Dose: 800 mg Documented by: Oxycodone HCl (Oxycodone) 5 mg PO Q2H PRN PRN Reason: Pain Witch Nathalia (Tucks) 1 pad TOP ASDIRECTED PRN PRN Reason: comfort care Discontinued Medications Butorphanol Tartrate (Stadol) 1 mg IVPUSH Q1H PRN PRN Reason: Pain Carboprost Tromethamine (Hemabate Ds) 250 mcg IM ASDIRECTED PRN PRN Reason: Post Hemorrhage Lactated Ringer's (Ringers, Lactated) 1,000 mls @ 150 mls/hr IV ASDIRECTED HORACE Last Admin: 03/12/20 23:59 Dose: 500 mls/hr Documented by: Oxytocin/Sodium Chloride (Oxytocin 30 Unit/500 Ml-Ns) 30 unit in 500 mls @ 500 mls/hr IV TITRATE [facility] Last Admin: 03/13/20 11:18 Dose: 500 mls/hr Documented by: Tranexamic Acid 1,000 mg/ (Sodium Chloride) 110 mls @ 660 mls/hr IV ONETIME PRN PRN Reason: Bleeding Oxytocin/Sodium Chloride (Oxytocin 30 Unit/500 Ml-Ns) 30 unit in 500 mls @ 2 mls/hr IV TITRATE [facility]; Protocol Oxytocin/Sodium Chloride (Oxytocin 30 Unit/500 Ml-Ns) Confirm Administered Dose 30 unit in 500 mls @ as directed .[facility] .[facility] Stop: 03/13/20 01:50 Lidocaine HCl (Xylocaine 1%) 50 ml INJECT ONETIME PRN PRN Reason: Laceration repair Methylergonovine Maleate (Methergine) 0.2 mg IM ASDIRECTED PRN PRN Reason: Post Hemorrhage Misoprostol (Cytotec) 200 mcg PO ONETIME PRN PRN Reason: Post Hemorrhage Misoprostol (Cytotec) 25 mcg VAG ONETIME PRN PRN Reason: Cervical Ripening Misoprostol (Cytotec) 25 mcg VAG Q4H PRN PRN Reason: Cervical Ripening Last Admin: 03/13/20 07:23 Dose: 25 mcg Documented by: Misoprostol (Cytotec) 25 mcg PO Q4H HORACE Last Admin: 03/13/20 07:23 Dose: 25 mcg Documented by: Nalbuphine HCl (Nubain) 10 mg IVPUSH Q1H PRN PRN Reason: Pain (severe 7-10) Last Admin: 03/13/20 09:04 Dose: 10 mg Documented by: Ondansetron HCl (Zofran) 4 mg IVPUSH Q4H PRN PRN Reason: Nausea/Vomiting Sodium Chloride (Saline Flush) 10 ml FLUSH ASDIRECTED PRN PRN Reason: Keep Vein Open Sodium Chloride (Saline Flush) 2.5 ml FLUSH ASDIRECTED PRN PRN Reason: Keep Vein Open Sodium Chloride (Normal Saline) 10 ml IV ASDIRECTED PRN PRN Reason: IV Use Sterile Water (Sterile Water For Irrigation) 1,000 ml IRR ASDIRECTED PRN PRN Reason: delivery Terbutaline Sulfate (Brethine) 0.25 mg SUBCUT ASDIRECTED PRN PRN Reason: Tacysystole - Exam General: Reports: Alert, Oriented, Cooperative, No Acute Distress HEENT: Reports: Pupils Equal, Pupils Reactive, EOMI, Mucous Membr. Moist/[place]: Reports: Supple Lungs: Reports: Clear to Auscultation, Normal Respiratory Effort Cardiovascular: Reports: Regular Rate, Regular Rhythm GI/Abdominal Exam: Normal Bowel Sounds, Soft, Non-Tender, No Organomegaly, No Distention (Female) Exam: Enlarged Uterus ( uterus, firm U-1), Vaginal Bleeding (Moderate rubra lochia, no clots) Rectal (Female) Exam: Normal Rectal Tone, Deferred Back Exam: Reports: Normal Inspection, Full Range of Motion Extremities: Normal Inspection, Normal Range of Motion, Non-Tender, No Pedal Edema, Normal Capillary Refill Skin: Reports: Warm, Dry, Intact Neurological: Reports: No New Focal Deficit Psy/Mental Status: Reports: Alert, Normal Affect, Normal Mood
== END 2020-03-14 13:42 | disposition home or self-care (01) | DRG 807 ==
LOC: MW.OB 20:38 → MW.OBCHECK 20:38 → MW.OB 22:00 → MW.OBCHECK 22:00 → OBSVTOIN 03-13 11:12 → MW.OB 03-13 13:27
PROVIDERS: ADMIT Obstetrics & Gynecology; ATTEND Obstetrics & Gynecology
PROC: 10E0XZZ Delivery of Products of Conception, External Approach (ICD-10-PCS; principal; 2020-03-13)
PROC: 10907ZC Drainage of Amniotic Fluid, Therapeutic from Products of Conception, Via Natural or Artificial Opening (ICD-10-PCS; 2020-03-13)
PROC: 3E0P7VZ Introduction of Hormone into Female Reproductive, Via Natural or Artificial Opening (ICD-10-PCS; 2020-03-13)
DX: O69.81X0 Labor and delivery complicated by cord around neck, without compression, not applicable or unspecified (principal); Z37.0 Single live birth; Z3A.39 39 weeks gestation of pregnancy; Z11.59 Encounter for screening for other viral diseases
CPT/HCPCS: 36415; 59025; 59409; 85027; 86592; 86593; 86850; 86900; 86901; A9270-GY; J2300; J2590; J7120; U0002

== ENCOUNTER 2021-12-14 10:39 | Day surgery (SDC) | payer MEDICAID ==
[~2021-12-14 10:39] MED LIST: Lactated Ringers 1,000 ML IV SCH; Propofol 200 MG/20 ML SDV ONE; Sodium Chloride 0.9% 10 ML Syringe FLUSH PRN; Sodium Chloride 0.9% 2.5 ML Syringe FLUSH PRN; Sodium Chloride 0.9% 20 ML SDV IV PRN
[2021-12-14 15:25] VITALS: BP 97/63; PULSE 72
== END 2021-12-14 15:15 | disposition home or self-care (01) ==
LOC: MW.SDS 10:39
PROVIDERS: ATTEND Surgery
DX: K52.9 Noninfective gastroenteritis and colitis, unspecified (principal); Z79.899 Other long term (current) drug therapy; Z90.49 Acquired absence of other specified parts of digestive tract; Z98.890 Other specified postprocedural states
CPT/HCPCS: 45380; 81025; J2704; J7120; 00811

== ENCOUNTER 2023-02-05 12:50 | Inpatient (IN) | payer MEDICAID ==
[2023-02-05] MEDS ORDERED: Misoprostol 25 MCG (1/4 of 100 MCG) Tab VAG PRN (13:28)
[2023-02-05] MEDS ORDERED: Misoprostol 200 MCG Tab PO PRN (13:28)
[2023-02-05] MEDS ORDERED: Tranexamic Acid 1,000 MG in Sodium Chloride 0.9% 100 ML IV PRN (13:28)
[2023-02-05] MEDS ORDERED: Methylergonovine 0.2 MG/1 ML Amp IM PRN (13:28)
[2023-02-05] MEDS ORDERED: Sodium Chloride 0.9% 10 ML Syringe FLUSH PRN (13:28)
[2023-02-05] MEDS ORDERED: Lidocaine 1% 50 ML MDV INJECT PRN (13:28)
[2023-02-05] MEDS ORDERED: Sodium Chloride 0.9% 2.5 ML Syringe FLUSH PRN (13:28)
[2023-02-05] MEDS ORDERED: Sodium Chloride 0.9% 20 ML SDV IV PRN (13:28)
[2023-02-05] MEDS ORDERED: Water For Irrigation,Sterile 1,000 ML Container IRR PRN (13:28)
[2023-02-05] MEDS ORDERED: Butorphanol 1 MG/ML SDV IVPUSH PRN (13:28)
[2023-02-05] MEDS ORDERED: Carboprost Tromethamine 250 MCG/1 mL Vial IM PRN (13:28)
[2023-02-05] MEDS ORDERED: Terbutaline 1 MG/ML SDV SUBCUT PRN (13:28)
[2023-02-05] MEDS ORDERED: Oxytocin/0.9 % Sodium Chloride 30 UNIT/500 ML BAG IV SCH ×2 (13:30)
[2023-02-05] MEDS ORDERED: Lactated Ringers 1,000 ML IV SCH (13:30)
[2023-02-05] MEDS: Misoprostol 25 MCG (1/4 of 100 MCG) Tab VAG PRN ×3 (14:01→23:01)
[2023-02-05] MEDS ORDERED: Misoprostol 25 MCG (1/4 of 100 MCG) Tab PO ONE (14:02)
[2023-02-05 15:23] LABS: HEMATOCRIT 32.9 % (36.0-46.0); HEMOGLOBIN 10.5 g/dL (12.0-16.0); MEAN CORPUSCULAR HGB CONC 31.9 g/dL (31.0-37.0); MEAN CORPUSCULAR VOLUME 87.7 fL (80.0-98.0); PLATELET COUNT,PLT 298 K/uL (150-400); RED BLOOD CELL COUNT 3.75 M/uL (4.30-5.90); WHITE BLOOD CELL COUNT,WBC 11.17 K/uL (4.0-11.0)
[2023-02-05] MEDS ORDERED: ePHEDrine 50 MG/ML SDV IVPUSH PRN ×2 (16:43)
[2023-02-05] MEDS ORDERED: Phenylephrine HCl 0.5 MG/5 ML AMP IVPUSH PRN (16:43)
[2023-02-05] MEDS ORDERED: Ropivacaine HCl/PF 400 MG in Premix Bag 1 BAG EPIDUR SCH (16:45)
[2023-02-05] MEDS: Misoprostol 25 MCG (1/4 of 100 MCG) Tab PO PRN ×2 (18:17→23:01)
[2023-02-06] MEDS ORDERED: Docusate Sodium 100 MG Cap PO PRN (05:08)
[2023-02-06] MEDS ORDERED: Bisacodyl 10 MG Supp RECTAL PRN (05:08)
[2023-02-06] MEDS ORDERED: Acetaminophen 500 MG Tab PO PRN ×2 (05:08)
[2023-02-06] MEDS ORDERED: Witch Hazel Medicated Pads 40/Jar TOP PRN (05:08)
[2023-02-06] MEDS ORDERED: Lanolin 100% Cream 7 GM Tube TOP PRN (05:08)
[2023-02-06] MEDS ORDERED: Ibuprofen 400 MG Tab PO PRN (05:08)
[2023-02-06] MEDS ORDERED: Benzocaine/Menthol 20%-0.5% Spray 78 GM Cannister TOP PRN (05:08)
[2023-02-06] MEDS: Ibuprofen 800 MG Tab PO PRN ×2 (07:50→14:51)
[2023-02-07 06:25] LABS: HEMATOCRIT 31.2 % (36.0-46.0); HEMOGLOBIN 9.8 g/dL (12.0-16.0)
[2023-02-08 16:24] VITALS: BP 110/74; PULSE 72
== END 2023-02-08 16:19 | disposition home or self-care (01) | DRG 807 ==
LOC: MW.OBCHECK 12:50 → MW.OB 12:51 → MW.OBCHECK 13:27 → MW.OB 13:28 → OBSVTOIN 02-06 04:52 → MW.OB 02-06 06:37
PROVIDERS: ADMIT Obstetrics & Gynecology Obstetrics; ATTEND Obstetrics & Gynecology Obstetrics
PROC: 10E0XZZ Delivery of Products of Conception, External Approach (ICD-10-PCS; principal; 2023-02-06)
PROC: 3E0P7VZ Introduction of Hormone into Female Reproductive, Via Natural or Artificial Opening (ICD-10-PCS; 2023-02-06)
PROC: 3E033VJ Introduction of Other Hormone into Peripheral Vein, Percutaneous Approach (ICD-10-PCS; 2023-02-06)
DX: O48.0 Post-term pregnancy (principal); Z37.0 Single live birth; Z3A.40 40 weeks gestation of pregnancy
CPT/HCPCS: 36415; 59025; 59409; 85014; 85018; 85027; 86592; 86850; 86900; 86901; A9270-GY; J0595; J2590; J7120